=== PATIENT | male | born 1970 | race African-American/Black ===

== ENCOUNTER 2017-03-04 17:18 | Emergency (ER) | payer OTHER ==
[~2017-03-04] VITALS: Ht 190.5 cm; Wt 135.6 kg
[2017-03-04] MEDS ORDERED: MORPHINE SULFATE 4 MG/ML DISP.SYRIN. IV/SQ PRN (18:45)
[2017-03-04 18:56] LABS: BASO # 0.1 x10^3/uL (0.0-0.2); BASO % 1 % (0-3); EOS % 2 % (0-3); HEMATOCRIT 43.4 % (39.0-53.0); HEMOGLOBIN 14.7 g/dL (13.0-17.5); LYMPH # 2.7 x10^3/uL (1.0-4.8); LYMPH % 26 % (24-48); MEAN CORPUSCULAR HEMOGLOBIN 29 pg (25-35); MEAN CORPUSCULAR HGB CONC 34 g/dL (31-37); MEAN CORPUSCULAR VOLUME 84 fL (79-100); MONO % 10 % (0-9); NEUT % 62 % (31-73); PLATELET COUNT 202 x10^3/uL (140-400); RED BLOOD COUNT 5.15 x10^6/uL (4.30-5.70); RED CELL DISTRIBUTION WIDTH 13.9 % (11.5-14.5); WHITE BLOOD COUNT 10.6 x10^3/uL (4.0-11.0)
[2017-03-04 19:07] LABS: CALCIUM 8.4 mg/dL (8.5-10.1); CREATININE 1.1 mg/dL (0.7-1.3); GFR 87.2; POTASSIUM 3.9 mmol/L (3.5-5.1)
[2017-03-04 19:17] LABS: BILIRUBIN,URINE NEGATIVE (NEG); GLUCOSE,URINE NEGATIVE (NEG); NITRITE,URINE NEGATIVE (NEG); PROTEIN,URINE NEGATIVE (NEG-TRACE); UROBILINOGEN,URINE 0.2 mg/dL (0.2 mg/dL)
[2017-03-04 19:21] LABS: BACTERIA,URINE 0 /HPF (0-FEW); RBC,URINE 0 /HPF (0-2); SQUAMOUS EPITHELIAL CELL,UR OCC /LPF
[2017-03-04 19:23] LABS: BARBITURATES NEG (NEG); BENZODIAZEPINES NEG (NEG); CANNABINOIDS POS (NEG); COCAINE NEG (NEG); METHADONE NEG (NEG); OPIATES NEG (NEG); PHENCYCLIDINE NEG (NEG)
[2017-03-04] MEDS ORDERED: KETOROLAC TROMETHAMINE 30 MG/ML INJ. IV ONE (20:00)
[2017-03-04] MEDS ORDERED: IOHEXOL 300 MG/ML 75 ML VIAL IV ONE (20:00)
[2017-03-04] MEDS ORDERED: IV NORMAL SALINE 1000ML BAG 1,000 ML IV ONE (20:00)
[2017-03-04] MEDS ORDERED: CONTRAST GIVEN MC PRN (20:15)
--- NOTE | 2017-03-04 20:37 | RAD ---
EXAM: CT pelvis with contrast. HISTORY: Perineal pain. Assess for abscess. TECHNIQUE: CT of the pelvis was performed after the intravenous administration of 75 mL Omnipaque 300. COMPARISON: None. FINDINGS: There is skin thickening and subcutaneous fat edema along the posterior aspect of the scrotum and perineal fat, extending into the left medial gluteal fat. This does not appear associated with the anus, and there is no extension into the ischiorectal fat or pelvis. A small immediately subcutaneous collection to the left of midline cannot be excluded. There appear to be small bilateral fat-containing inguinal hernias. There are no pathologically enlarged lymph nodes. There are mild atherosclerotic calcifications. IMPRESSION: 1. There may be a small immediately subcutaneous abscess to the left of midline just posterior to the scrotum. There is edema or cellulitis within the left gluteal fat. No extension into the pelvis. 2. Small bilateral fat-containing inguinal hernias. *One or more of the following individualized dose reduction techniques were utilized for this examination: 1. Automated exposure control. 2. Adjustment of the mA and/or kV according to patient size. 3. Use of iterative reconstruction technique. Electronically signed by: Elvira Elizalde MD (03/04/2017 8:33 PM) [facility]
[2017-03-04] MEDS ORDERED: AMOX1TAB61 PO (22:09)
[2017-03-04] MEDS ORDERED: HYDR-971 PO (22:09)
--- NOTE | 2017-03-04 22:09 | PHYS DOC ---
Past Medical History Past Medical History: No Pertinent History Past Surgical History: Appendectomy Alcohol Use: None Drug Use: None Adult General Chief Complaint Chief Complaint: MULTIPLE COMPLAINTS HPI HPI Patient is a 46 year old male who presents with complaints of diffuse weakness perhaps more on the left side but his chief complaint is pain around his rectal area and possible abscess. Review of Systems Review of Systems Constitutional: Denies fever or chills [] Eyes: Denies change in visual acuity, redness, or eye pain [] HENT: Denies nasal congestion or sore throat. Left ear pain Respiratory: Denies cough or shortness of breath [] Cardiovascular:no chest pain GI: Denies abdominal pain, nausea, vomiting, bloody stools or diarrhea . Pain below scrotum and rectal area. : Denies dysuria or hematuria [] Musculoskeletal: Denies back pain or joint pain [] Integument: Denies rash or skin lesions [] Neurologic: Denies headache, focal weakness or sensory changes [] Endocrine: Denies polyuria or polydipsia [] Current Medications Current Medications Current Medications Medications (Trade) Dose Ordered Sig/Jeri Start Time Stop Time Status Last Admin Dose Admin Clindamycin Phosphate 50 ml @ 100 mls/hr 1X ONCE 03/04/17 22:15 03/04/17 22:44 03/04/17 22:08 100 MLS/HR Info (Do NOT chart on this entry -- for MONITORING) 1 each PRN DAILY PRN 03/04/17 20:15 03/06/17 20:14 Iohexol (Omnipaque 300 Mg/ml) 75 ml 1X ONCE 03/04/17 20:00 03/04/17 20:01 DC 03/04/17 20:16 75 ML Ketorolac Tromethamine (Toradol) 30 mg 1X ONCE 03/04/17 20:00 03/04/17 20:01 DC 03/04/17 20:03 30 MG Morphine Sulfate 4 mg PRN Q15MIN PRN 03/04/17 18:45 03/05/17 18:44 Sodium Chloride 1,000 ml @ 1,000 mls/hr 1X ONCE 03/04/17 20:00 03/04/17 20:59 DC 03/04/17 20:03 1,000 MLS/HR Allergies Allergies Allergies Coded Allergies Type Severity Reaction Last Updated Verified Penicillins Allergy Unknown 03/04/17 Yes Physical Exam Physical Exam Constitutional: Well developed, well nourished, no acute distress, non-toxic appearance. [] HENT: Normocephalic, atraumatic, Eyes: EOMI, conjunctiva normal, no discharge. [] Neck: Normal range of motion, no tenderness, supple, no stridor. [] Cardiovascular:Heart rate regular rhythm, no murmur [] Lungs & Thorax: Bilateral breath sounds clear to auscultation [] Abdomen: Bowel sounds normal, soft, no tenderness, no masses, no pulsatile masses. [] Skin: Warm, dry, no erythema, no rash. [] Back: No tenderness, no CVA tenderness. [] Extremities: No tenderness, no cyanosis, no clubbing, ROM intact, no edema. [] Neurologic: Alert and oriented X 3, normal motor function, no focal deficits noted. No pronator drift. Pt ambulates without difficulty Psychologic: Affect normal, judgement normal, mood normal. [] Current Patient Data Vital Signs Vital Signs Date Time Temp Pulse Resp B/P (MAP) Pulse Ox O2 Delivery O2 Flow Rate FiO2 03/04/17 17:38 98.7 87 16 140/84 (102) 97 Room Air 98.7 Lab Values Laboratory Tests Test 03/04/17 18:45 03/04/17 19:10 White Blood Count 10.6 x10^3/uL (4.0-11.0) Red Blood Count 5.15 x10^6/uL (4.30-5.70) Hemoglobin 14.7 g/dL (13.0-17.5) Hematocrit 43.4 % (39.0-53.0) Mean Corpuscular Volume 84 fL (79-100) Mean Corpuscular Hemoglobin 29 pg (25-35) Mean Corpuscular Hemoglobin Concent 34 g/dL (31-37) Red Cell Distribution Width 13.9 % (11.5-14.5) Platelet Count 202 x10^3/uL (140-400) Neutrophils (%) (Auto) 62 % (31-73) Lymphocytes (%) (Auto) 26 % (24-48) Monocytes (%) (Auto) 10 % (0-9) H Eosinophils (%) (Auto) 2 % (0-3) Basophils (%) (Auto) 1 % (0-3) Neutrophils # (Auto) 6.5 x10^3uL (1.8-7.7) Lymphocytes # (Auto) 2.7 x10^3/uL (1.0-4.8) Monocytes # (Auto) 1.0 x10^3/uL (0.0-1.1) Eosinophils # (Auto) 0.2 x10^3/uL (0.0-0.7) Basophils # (Auto) 0.1 x10^3/uL (0.0-0.2) Sodium Level 139 mmol/L (136-145) Potassium Level 3.9 mmol/L (3.5-5.1) Chloride Level 104 mmol/L (98-107) Carbon Dioxide Level 27 mmol/L (21-32) Anion Gap 8 (6-14) Blood Urea Nitrogen 11 mg/dL (8-26) Creatinine 1.1 mg/dL (0.7-1.3) Estimated GFR (Cockcroft-Gault) 87.2 Glucose Level 111 mg/dL (70-99) H Calcium Level 8.4 mg/dL (8.5-10.1) L Urine Collection Type Unknown Urine Color Yellow Urine Clarity Clear Urine pH 6.0 Urine Specific Emerson 1.015 Urine Protein Negative mg/dL (NEG-TRACE) Urine Glucose (UA) Negative mg/dL (NEG) Urine Ketones (Stick) Negative mg/dL (NEG) Urine Blood Negative (NEG) Urine Nitrite Negative (NEG) Urine Bilirubin Negative (NEG) Urine Urobilinogen Dipstick 0.2 mg/dL (0.2 mg/dL) Urine Leukocyte Esterase Trace (NEG) Urine RBC 0 /HPF (0-2) Urine WBC 1-4 /HPF (0-4) Urine Squamous Epithelial Cells Occ /LPF Urine Bacteria 0 /HPF (0-FEW) Urine Mucus Slight /LPF Urine Opiates Screen Neg (NEG) Urine Methadone Screen Neg (NEG) Urine Barbiturates Neg (NEG) Urine Phencyclidine Screen Neg (NEG) Urine Amphetamine/Methamphetamine Neg (NEG) Urine Benzodiazepines Screen Neg (NEG) Urine Cocaine Screen Neg (NEG) Urine Cannabinoids Screen Pos (NEG) Urine Ethyl Alcohol Neg (NEG) Laboratory Tests 03/04/17 18:45 Laboratory Tests 03/04/17 18:45 EKG EKG 84 SR, no stemi, EP read at 2000 Radiology/Procedures Radiology/Procedures CT read of abscess noted and discussed with surgery Dr kenyon and the patient[] Course & Med Decision Making Course & Med Decision Making Pertinent Labs and Imaging studies reviewed. (See chart for details) I discussed this patient with down the surgeon business continuity strategy director Dr. Kenyon and both he and I agreed the patient should stay in the hospital to have a procedure done in the morning. When I went to the room to relate this to the patient the patient was adamant about not being able to stay due to work concerns. I'll O conversation with the patient regarding how dangerous to do this and the possibility that this infection may worsen. The patient understands the risk ( include risk and disability), he has medical decision capacity, and he still states that he cannot stay. The patient states that he will call surgery tomorrow morning after the event he has to take care of, and make an appointment. I called the surgeon back to let him know about the patient's decision, the surgeon understands and his recommendation if for the patient to stay, however since the patient opts to leave he recommends Augmentin for this patient and request the patient calls him in the morning to set up an appointment. pt states his reaction to penicillin was only a rash when young, did not need hospitalization. Dragon Disclaimer Dragon Disclaimer This electronic medical record was generated, in whole or in part, using a voice recognition dictation system. Departure Departure Impression: Primary Impression: Cellulitis Additional Impression: Perineal abscess Disposition: 01 HOME, SELF-CARE Referrals: NO PCP (PCP) JUAN M KENYON MD please call Dr Kenyon in the morning to set up an appointment to take care of your abscess Scripts Hydrocodone/Apap 5-325 (NORCO 5-325 TABLET) 1 Each Tablet 1 TAB PO TID, #20 TAB Prov: Maurice ARZOLA MD 03/04/17 Amoxicillin/Potassium Clav (AUGMENTIN 875-125 TABLET) 1 Each Tablet 1 TAB PO BID, #20 TAB Prov: Maurice ARZOLA MD 03/04/17 Problem Qualifiers Maurice ARZOLA MD Mar 04, 2017 22:09
[2017-03-04] MEDS ORDERED: CLINDAMYCIN 600MG PREMIX 50 ML IV ONE (22:15)
[2017-03-04 22:30] VITALS: BP 140/68
--- NOTE | 2017-03-05 07:47 | RAD ---
AP chest radiograph 03/04/2017 Indication: Dyspnea and weakness on the left side. Comparison: None. Findings: Cardiac and mediastinal silhouettes are within normal limits. No pleural effusion, pneumothorax or focal consolidation. Impression: No acute cardiopulmonary abnormality.
--- NOTE | 2017-03-05 08:17 | EKG ---
[facility] [address] [place] [address] Test Date: 2017-03-04 Test Time: 18:59:32 Pat Name: MAN HEDRICK Department: Room: Gender: M Insulation Blower: : 1970 Requested By: Maurice ARZOLA Order Number: [id number] Reading MD: Gary Silva Measurements Intervals [place] Rate: 84 P: 90 AL: 186 QRS: 40 QRSD: 84 T: 25 QT: 340 QTc: 405 Interpretive Statements SINUS RHYTHM CONSISTENT WITH ANTEROSEPTAL INFARCT PROBABLY OLD Electronically Signed On 03-05-2017 8:36:13 CDT by Gary Silva
[2017-03-10] MEDS ORDERED: AMOX1TAB61 PO (10:48)
== END 2017-03-04 22:41 | disposition home or self-care (01) ==
LOC: ER 17:18
DX: L02.215 Cutaneous abscess of perineum (principal); Z88.0 Allergy status to penicillin
CPT/HCPCS: 36415; 71010; 74170; 80048; 80307; 81001; 85027; 87086; 93005; 96361; 96365; 96375; 99285; J1885; J3490; J7030; Q9967; G0479

== ENCOUNTER 2017-03-09 09:22 | Inpatient (IN) | payer OTHER ==
[~2017-03-09] VITALS: Ht 190.5 cm; Wt 135.6 kg
[~2017-03-09 09:22] MED LIST: AMOX1TAB61 PO; HYDR-971 PO
--- NOTE | 2017-03-09 10:37 | PHYS DOC ---
Past Medical History Past Medical History: No Pertinent History Past Surgical History: Appendectomy Alcohol Use: Occasionally Drug Use: None Adult General Chief Complaint Chief Complaint: ABSCESS HPI HPI Patient is a 46 year old male presents to the emergency department with a history of perineal cellulitis in which he was seen on March 04 for and offered admission. Patient had refused at that time. Patient states he had taking Augmentin. He had also set up an appointment with Dr. Kenyon which she has March 16. Patient states the area started draining and he was having increased pain and discomfort. He had talked with the office staff and was told to come to the emergency department if it would start draining or he has any increased pain and discomfort. Patient denies fever, chills, nausea or vomiting. Review of Systems Review of Systems Constitutional: Denies fever or chills [] Eyes: Denies change in visual acuity, redness, or eye pain [] HENT: Denies nasal congestion or sore throat [] Respiratory: Denies cough or shortness of breath [] Cardiovascular: No additional information not addressed in HPI [] GI: Denies abdominal pain, nausea, vomiting, bloody stools or diarrhea [] : Denies dysuria or hematuria [] Musculoskeletal: Denies back pain or joint pain [] Integument: Denies rash or skin lesions. Perineal abscess/cellulitis Neurologic: Denies headache, focal weakness or sensory changes [] Endocrine: Denies polyuria or polydipsia [] Allergies Allergies Allergies Coded Allergies Type Severity Reaction Last Updated Verified Penicillins Allergy Unknown 03/04/17 Yes Physical Exam Physical Exam Constitutional: Well developed, well nourished, no acute distress, non-toxic appearance. [] HENT: Normocephalic, atraumatic, bilateral external ears normal, oropharynx moist, no oral exudates, nose normal. [] Eyes: PERRLA, EOMI, conjunctiva normal, no discharge. [] Neck: Normal range of motion, no tenderness, supple, no stridor. [] Cardiovascular:Heart rate regular rhythm, no murmur [] Lungs & Thorax: Bilateral breath sounds clear to auscultation [] Skin: Warm, dry, no erythema, no rash. Patient with redness, tenderness with no apparent drainage noted. Tenderness noted Back: No tenderness Extremities: No tenderness, no cyanosis, no clubbing, ROM intact, no edema. [] Neurologic: Alert and oriented X 3, normal motor function, normal sensory function, no focal deficits noted. [] Psychologic: Affect normal, judgement normal, mood normal. [] Current Patient Data Vital Signs Vital Signs Date Time Temp Pulse Resp B/P (MAP) Pulse Ox O2 Delivery O2 Flow Rate FiO2 03/09/17 09:25 97.6 83 16 96 Room Air 97.6 EKG EKG [] Radiology/Procedures Radiology/Procedures [] Course & Med Decision Making Course & Med Decision Making Pertinent Labs and Imaging studies reviewed. (See chart for details) Tentative contact Dr. Kenyon who is out of town for the week. Spoke with Dr. Bonner who agrees to be consulted for the patient. Spoke with the hospitalist in regards to patient being admitted will be placed on IV antibiotics with a consult to Dr. Bonner. Patient's was aware of the admission. [] Dragon Disclaimer Dragon Disclaimer This electronic medical record was generated, in whole or in part, using a voice recognition dictation system. Departure Departure Impression: Primary Impression: Cellulitis of perineum Disposition: ADMITTED INPATIENT Admitting Physician: Other (Dr Escobar) Condition: STABLE Referrals: NO PCP (PCP) ROSANA JIMENEZ ENTERPRISE ACCOUNT MANAGER Mar 09, 2017 10:37
[2017-03-09 10:50] LABS: BASO # 0.1 x10^3/uL (0.0-0.2); BASO % 1 % (0-3); EOS % 3 % (0-3); HEMATOCRIT 42.7 % (39.0-53.0); HEMOGLOBIN 14.7 g/dL (13.0-17.5); LYMPH # 2.7 x10^3/uL (1.0-4.8); LYMPH % 33 % (24-48); MEAN CORPUSCULAR HEMOGLOBIN 29 pg (25-35); MEAN CORPUSCULAR HGB CONC 35 g/dL (31-37); MEAN CORPUSCULAR VOLUME 84 fL (79-100); MONO % 12 % (0-9); NEUT % 51 % (31-73); PLATELET COUNT 237 x10^3/uL (140-400); RED BLOOD COUNT 5.11 x10^6/uL (4.30-5.70); RED CELL DISTRIBUTION WIDTH 14.1 % (11.5-14.5); WHITE BLOOD COUNT 8.1 x10^3/uL (4.0-11.0)
[2017-03-09 10:54] LABS: CALCIUM 8.6 mg/dL (8.5-10.1); CREATININE 1.2 mg/dL (0.7-1.3); GFR 78.9; POTASSIUM 4.2 mmol/L (3.5-5.1)
[2017-03-09 11:00] VITALS: BP 168/98
[2017-03-09 11:00] LABS: ALBUMIN 3.6 g/dL (3.4-5.0); ALBUMIN/GLOBULIN RATIO 0.9 (1.0-1.7); TOTAL BILIRUBIN 0.4 mg/dL (0.2-1.0); TOTAL PROTEIN 7.6 g/dL (6.4-8.2)
[2017-03-09] MEDS ORDERED: VANCOMYCIN 2 GM in IV NORMAL SALINE 500ML BAG 500 ML IV ONE (11:00)
[2017-03-09] MEDS ORDERED: VANCOMYCIN PER PHARMACY MC PRN (11:15)
[2017-03-09] MEDS: HYDROcodone/APAP 5/325MG 1 TAB TABLET PO PRN ×2 (11:32→17:43)
--- NOTE | 2017-03-09 13:05 | PDOC2 ---
CANDELARIO MAGUIRE MANAGER LATIN 03/09/17 1305: CONSULT Date of Consult Date of Consult DATE: 03/09/17 TIME: 12:56 Reason for Consult Reason for Consult: perineal abscess Referring Physician Referring Physician: ER Identification/Chief Complaint Chief Complaint rectal pain Problems: Source Source: Chart review, Patient History of Present Illness Reason for Visit: Patient with swelling to left groin/perineal area for 1 week. He was seen in ER Thursday evening and CT showed small abscess, however he declined admission due to work functions. He started oral antibiotics and had a appointment scheduled with Dr Kenyon, however yesterday it burst, had foul smelling drainage and fever. Continues to have pain to area Past Medical History Past Medical History no pertinent hx Past Surgical History Past Surgical History: Appendectomy (open) Family History Family History: Other (noncontributory to current illness ) Social History <1 pack per day ALCOHOL: occassional Drugs: None Lives: Alone Current Problem List Problem List Problems Medical Problems: (1) Cellulitis of perineum Status: Acute Current Medications Current Medications Current Medications Vancomycin HCl 250 ml @ 250 mls/hr DAILY IV ; Start 03/10/17 at 09:00; Stop 03/10 at 09:00; Status DC Acetaminophen/ Hydrocodone Bitart (Lortab 5/325) 2 tab PRN Q6HRS PRN PO pain Last administered on 03/09/17t 11:32; Start 03/09/17 at 10:45 Vancomycin HCl 2 gm/Sodium Chloride 500 ml @ 250 mls/hr 1X ONCE IV ; Start at 11:00; Stop 03/09/17 at 12:59 Vancomycin HCl (Vanco Per Pharmacy) 1 each PRN DAILY PRN MC SEE COMMENTS; Start 03/09/17 at 11:15 Active Scripts Active Kennard 5-325 Tablet (Acetaminophen/Hydrocodone Bitart) 1 Each Tablet 1 Tab PO TID Augmentin 875-125 Tablet (Amoxicillin/Potassium Clav) 1 Each Tablet 1 Tab PO BID Allergies Allergies: Coded Allergies: Penicillins (Verified Allergy, Unknown, 03/04/17) ROS General: YES: Other (fevers+), No: Chills PSYCHOLOGICAL ROS: No: Anxiety, Depression Eyes: No Blurry vision, No Double vision HEENT: YES: Other (+ drainage/odor from ear) Hematological and Lymphatic: No: Bleeding Problems, Blood Clots Respiratory: No: Cough, Shortness of breath Cardiovascular: No Chest Pain, No Palpitations Gastrointestinal: No Nausea, No Vomiting Genitourinary: No Dysuria, No Hematuria Musculoskeletal: No Joint Pain, No Muscle Pain Neurological: No Confusion, No Numbness/Tingling Skin: Yes Other (see hpi) Physical Exam General: Alert, Oriented X3, Cooperative, No acute distress HEENT: PERRLA, Mucous membr. moist/pink Lungs: Clear to auscultation, Normal air movement Heart: Regular rate, Normal S1, Normal S2, No murmurs Abdomen: Soft, No tenderness, Other (RLQ scar) Extremities: No clubbing, No cyanosis Skin: Other (left perineal area with small open wound, there is still some induration, minimal fluctunance, and moderate tenderness on exam-no scrotal swelling ) Neuro: Normal gait, Normal speech Psych/Mental Status: Mental status NL, Mood NL MUSCULOSKELETAL: No deformity, No swelling Vitals VITALS Vital Signs Date Time Temp Pulse Resp B/P (MAP) Pulse Ox O2 Delivery O2 Flow Rate FiO2 03/09/17 11:32 16 99 Room Air 03/09/17 09:25 97.6 83 97.6 Labs Labs Laboratory Tests Test 03/09/17 10:35 White Blood Count 8.1 x10^3/uL (4.0-11.0) Red Blood Count 5.11 x10^6/uL (4.30-5.70) Hemoglobin 14.7 g/dL (13.0-17.5) Hematocrit 42.7 % (39.0-53.0) Mean Corpuscular Volume 84 fL (79-100) Mean Corpuscular Hemoglobin 29 pg (25-35) Mean Corpuscular Hemoglobin Concent 35 g/dL (31-37) Red Cell Distribution Width 14.1 % (11.5-14.5) Platelet Count 237 x10^3/uL (140-400) Neutrophils (%) (Auto) 51 % (31-73) Lymphocytes (%) (Auto) 33 % (24-48) Monocytes (%) (Auto) 12 % (0-9) Eosinophils (%) (Auto) 3 % (0-3) Basophils (%) (Auto) 1 % (0-3) Neutrophils # (Auto) 4.2 x10^3uL (1.8-7.7) Lymphocytes # (Auto) 2.7 x10^3/uL (1.0-4.8) Monocytes # (Auto) 1.0 x10^3/uL (0.0-1.1) Eosinophils # (Auto) 0.2 x10^3/uL (0.0-0.7) Basophils # (Auto) 0.1 x10^3/uL (0.0-0.2) Sodium Level 139 mmol/L (136-145) Potassium Level 4.2 mmol/L (3.5-5.1) Chloride Level 104 mmol/L (98-107) Carbon Dioxide Level 27 mmol/L (21-32) Anion Gap 8 (6-14) Blood Urea Nitrogen 10 mg/dL (8-26) Creatinine 1.2 mg/dL (0.7-1.3) Estimated GFR (Cockcroft-Gault) 78.9 BUN/Creatinine Ratio 8 (6-20) Glucose Level 128 mg/dL (70-99) Calcium Level 8.6 mg/dL (8.5-10.1) Total Bilirubin 0.4 mg/dL (0.2-1.0) Aspartate Amino Transf (AST/SGOT) 42 U/L (15-37) Alanine Aminotransferase (ALT/SGPT) 78 U/L (16-63) Alkaline Phosphatase 68 U/L (46-116) Total Protein 7.6 g/dL (6.4-8.2) Albumin 3.6 g/dL (3.4-5.0) Albumin/Globulin Ratio 0.9 (1.0-1.7) Laboratory Tests Test 03/09/17 10:35 White Blood Count 8.1 x10^3/uL (4.0-11.0) Red Blood Count 5.11 x10^6/uL (4.30-5.70) Hemoglobin 14.7 g/dL (13.0-17.5) Hematocrit 42.7 % (39.0-53.0) Mean Corpuscular Volume 84 fL (79-100) Mean Corpuscular Hemoglobin 29 pg (25-35) Mean Corpuscular Hemoglobin Concent 35 g/dL (31-37) Red Cell Distribution Width 14.1 % (11.5-14.5) Platelet Count 237 x10^3/uL (140-400) Neutrophils (%) (Auto) 51 % (31-73) Lymphocytes (%) (Auto) 33 % (24-48) Monocytes (%) (Auto) 12 % (0-9) Eosinophils (%) (Auto) 3 % (0-3) Basophils (%) (Auto) 1 % (0-3) Neutrophils # (Auto) 4.2 x10^3uL (1.8-7.7) Lymphocytes # (Auto) 2.7 x10^3/uL (1.0-4.8) Monocytes # (Auto) 1.0 x10^3/uL (0.0-1.1) Eosinophils # (Auto) 0.2 x10^3/uL (0.0-0.7) Basophils # (Auto) 0.1 x10^3/uL (0.0-0.2) Sodium Level 139 mmol/L (136-145) Potassium Level 4.2 mmol/L (3.5-5.1) Chloride Level 104 mmol/L (98-107) Carbon Dioxide Level 27 mmol/L (21-32) Anion Gap 8 (6-14) Blood Urea Nitrogen 10 mg/dL (8-26) Creatinine 1.2 mg/dL (0.7-1.3) Estimated GFR (Cockcroft-Gault) 78.9 BUN/Creatinine Ratio 8 (6-20) Glucose Level 128 mg/dL (70-99) Calcium Level 8.6 mg/dL (8.5-10.1) Total Bilirubin 0.4 mg/dL (0.2-1.0) Aspartate Amino Transf (AST/SGOT) 42 U/L (15-37) Alanine Aminotransferase (ALT/SGPT) 78 U/L (16-63) Alkaline Phosphatase 68 U/L (46-116) Total Protein 7.6 g/dL (6.4-8.2) Albumin 3.6 g/dL (3.4-5.0) Albumin/Globulin Ratio 0.9 (1.0-1.7) Assessment/Plan Assessment/Plan cellulitis, abscess to left perineal with spontaneous drainage defer ear drainage/possible infection to IPC will check CT to see if further drainable fluid continue abx D/W MAYELA Soto MD 03/09/17 1824: CONSULT Allergies Allergies: Coded Allergies: Penicillins (Verified Allergy, Unknown, 03/04/17) Assessment/Plan Assessment/Plan Above reviewed, agree with plan; pt seen and examined independently by myself; 46 year old male with L perineal pain, swelling for last several days, drained spontaneously with improved symptoms; PMH/PSH/ROS/SH as above; alert, oriented NAD, lungs clear, heart RR and R, abdomen obese, nontender, left perineal region with small open ulcer, minimal drainage currently, appears soft , minimal induration; CT reviewed, shows improvement with resolving inflammatory changes. A/P) L perineal abscess, spontaneously drained with clinical and radiographic improvement; likely will not need further intervention, but will reinspect tomorrow CANDELARIO MAGUIRE APRN Mar 09, 2017 13:05 MAYELA GUADARRAMA MD Mar 09, 2017 18:24
[2017-03-09] MEDS ORDERED: IOHEXOL 300 MG/ML 75 ML VIAL IV ONE (13:45)
[2017-03-09 15:00] VITALS: BP 115/64
--- NOTE | 2017-03-09 15:39 | RAD ---
CT of the pelvis with contrast, 03/09/2017: History: Possible peroneal abscess Multidetector CT imaging was performed following an IV bolus injection of iodinated contrast material. No oral contrast material was administered for this exam. Comparison is made to a study from 03/04/2017. Streaky inflammatory changes along the posterior aspect of the perineum and scrotum extending into the inferior left gluteal region fat have diminished. There is only minimal residual inflammation in this region. No discrete fluid collection is seen to suggest abscess. The entire scrotum and perineum was not fully included on these scans. The bowel loops within the pelvis are unremarkable. The prostate gland is of normal size. There is minimal aortoiliac calcific plaquing. No abnormal pelvic fluid collection is seen. Small inguinal and iliac lymph nodes are unchanged. One left external iliac node is mildly enlarged, likely on a reactive basis. IMPRESSION: Resolving left posterior perineal inflammatory changes. No abscess is identified. PQRS Compliance Statement: One or more of the following individualized dose reduction techniques were utilized for this examination: 1. Automated exposure control 2. Adjustment of the mA and/or kV according to patient size 3. Use of iterative reconstruction technique
[2017-03-09] MEDS ORDERED: NICO1PAT21 TP (17:44)
[2017-03-09] MEDS: NEOMYCIN/POLYMYXIN/HC OTIC SUSPENSION 10ML BOTTLE. AS SCH ×2 (18:33→21:37)
[2017-03-09] MEDS: CEFEPIME HCL 1 GM in IV NORMAL SALINE 50ML 50 ML IV SCH (18:33)
[2017-03-09] MEDS: NICOTINE 21MG PATCH. TD SCH (18:36)
[2017-03-09 18:45] VITALS: BP 115/64
[2017-03-09 19:00] VITALS: BP 139/78
--- NOTE | 2017-03-09 20:49 | HP ---
ADMIT DATE: 03/09/2017 CHIEF COMPLAINT: Perineal abscess. HISTORY OF PRESENT ILLNESS: The patient is a 46-year-old -[place] gentleman without any medical issues, who presented to the Emergency Room with persistent perineal pain. He actually had been seen in the Emergency Room on 03/04/2017, but had declined admission at that time as he had a function at work that he felt could not be done without him. He had received Augmentin as antibiotic coverage, which did not alleviate the current issues. He was advised to return to the Emergency Room, should he feel a pop or drainage. He did experience both and therefore promptly returned to the Emergency Room today. He relates that the pain was actually increased. He, however, denies any fevers, chills, nausea, vomiting or diarrhea. PAST MEDICAL HISTORY: None. PAST SURGICAL HISTORY: None. FAMILY HISTORY: Positive for diabetes, hypertension and heart disease in both parents. SOCIAL HISTORY: Lives by himself. 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 Does not smoke. Drinks alcohol socially. No drugs. ALLERGIES: PENICILLINS. MEDICATIONS: None at home. REVIEW OF SYSTEMS: Positive as per HPI for perirectal abscess associated with pain and swelling. Rest of organ system review is negative. PHYSICAL EXAMINATION: VITAL SIGNS: From today show a blood pressure of 115/64, heart rate of 74, respiratory rate at 20. He is afebrile. GENERAL: This is a morbidly obese 46-year-old gentleman, alert and oriented, in no acute distress. HEENT: Shows no scleral icterus. NECK: Supple. LUNGS: Clear to auscultation bilaterally. HEART: Has regular rate and rhythm. ABDOMEN: Has positive bowel sounds, soft, nontender. PELVIS: Perineal area shows open abscess draining some, erythema and swelling in a very narrow area around the lesion. EXTREMITIES: Show no edema. SKIN: Warm, soft and dry without any rash. LABORATORY DATA: CBC with a WBC of 8.1, hemoglobin of 14.7, platelets of 237. Chemistries with a BUN and creatinine of 10 and 1.2. Electrolytes within normal limits. AST and ALT of 42 and 78. Albumin at 3.6. IMAGING DATA: Pelvis CT obtained in the Emergency Room shows resolving left posterior perineal inflammatory changes. No abscess is identified. ASSESSMENT AND PLAN: The patient is a 46-year-old -[place] gentleman with perineal abscess, which apparently has spontaneously drained. He has no fevers. Pain is his main issue. He is admitted to have surgery followup with him, although, at this point, he may not need any further intervention. He will be started on antibiotics, with having started on vancomycin in the Emergency Room, we will add gram-negative coverage as well given the location. Incidentally, the patient complains of left-sided ear pain ever since with foul-smelling odor from his ear. Will add otic antibiotics and A/B Otic. For pain control, he currently has hydrocodone. Can adjust medications as needed in dosage or frequency. Await surgical input for further interventions. FRANCK MCKEON MD DR: UR/nts JOB#: [id number] / [id number] BARBARA
[2017-03-09] MEDS: VANCOMYCIN 2 GM in IV NORMAL SALINE 500ML BAG 500 ML IV SCH (21:39)
[2017-03-09 23:00] VITALS: BP 125/69
[2017-03-10] MEDS: CEFEPIME HCL 1 GM in IV NORMAL SALINE 50ML 50 ML IV SCH ×2 (00:10→05:53)
[2017-03-10 03:00] VITALS: BP 141/82
--- NOTE | 2017-03-10 03:22 | ACF ---
Admission Forms Criteria CELLULITIS Clinical Indications for Admission to Inpatient Care (Place 'X' for any and all applicable criteria): Admission is indicated for ANY ONE of the following(1)(2)(3)(4)(5): [ ]I. Limb-threatening infection [ ]II. High-risk comorbid condition as indicated by ANY ONE of the following: [ ]a) Uncontrolled diabetes (eg, HbA1c greater than 10% (0.1)) [ ]b) Cirrhosis [ ]c) Neutropenia [ ]d) Asplenia [ ]e) Immunosuppression [ ]f) Symptomatic heart failure [ ]III. Failure of outpatient therapy as indicated by ALL of the following: [ ]a) Progression or no improvement after adequate trial (minimum of 48 hours, with longer period for stable lower extremity infection) [ ]b) Adequate antibiotic regimen as indicated by use of ANY ONE of the following: [ ]i) First-generation cephalosporin (e.g., cephalexin) [ ]ii) Antistaphylococcal penicillin (e.g., dicloxacillin) [ ]iii) Penicillin-allergic patient regimen (clindamycin, extended-spectrum fluoroquinolone, or doxycycline) [ ]iv) Resistant organism (eg, methicillin-resistant Staphylococcus aureus) regimen (6) [ ]c) Outpatient intravenous therapy regimen is not appropriate due to ANY ONE of the following. (7)(8)(9)(10): [ ]i) It was tried and was not successful (eg, progression of infection). [ ]ii) It is not available or cannot be arranged in a clinically appropriate time frame (e.g., the next day). [ ]iii) Clinical presentation (eg, acuity of infection, rapidity of progression, confirmed or suspected bacteremia) is judged to require ALL of the following: [ ]1) Immediate initiation of intravenous therapy ( eg, cannot wait for next day) [ ]2) Intensity of patient monitoring and observation (eg, vital sign measurement, checks for infection progression) that cannot be provided at other than inpatient level of care [ ]IV. Mental status changes [ ]V. Bacteremia [ ]. Hemodynamic instability [ ]VII. Suspected necrotizing soft tissue infection (e.g., gas in tissue)(11)( 12) [ ]VIII. Orbital infection (13)(14) [ ]IX. Associated surgical procedure (e.g., abscess drainage, debridement) not amenable to outpatient, emergency department, or observation care [ ]X. Cutaneous gangrene [ ]XI. High fever (temperature greater than 39.5 degrees C (103.1 degrees F) (oral)) not responsive to outpatient, emergency department, or observation care therapy [X]XIII. Inpatient admission required rather than observation care (Also use Cellulitis: Observation Care as appropriate) because of ANY ONE of the following : [X]a) Periorbital or perineal infection that is severe or worsening [ ]b) Severe pain requiring acute inpatient management [ ]c) IV fluid to replace significant ongoing (e.g., for over 24 hours) losses (greater than 3L/m2 per day) [ ]d) Compartment syndrome monitoring (17) [ ]e) Strict or protective (eg, laminar flow) isolation [ ]f) Urgent debridement or skin grafting [ ]g) Bone or joint debridement [ ]h) Immediate inpatient surgery [ ]i) Other condition, treatment or monitoring requiring inpatient admission Extended stay beyond goal length of stay may be needed for (1)(18): [ ]a) Necrotizing soft tissue infection or fasciitis [ ]b) Gram-negative infection [ ]c) Methicillin-resistant Staphylococcal aureus (MRSA) infection [ ]d) Peripheral venous insufficiency with cellulitis [ ]e) Extensive edema [ ]f) Sepsis or continued Hemodynamic instability [ ]g) Continued high fever or mental status change [ ]h) Bacteremia [ ]i) Active serious comorbid conditions ( eg, heart failure, renal insufficiency) The original [employer] content created by [employer] has been revised. The portions of the content which have been revised are identified through the use of italic text or in bold, and [facility] has neither reviewed nor approved the modified material. All other unmodified content is copyright [facility] [employer] [facility] [employer] Please see references footnoted in the original [facility] [employer] edition 2016 Admission Criteria Met?: Yes ALESIA QUINONES Mar 10, 2017 03:22 FRANCK MCKEON MD Mar 11, 2017 08:34
[2017-03-10 06:15] LABS: BASO # 0.1 x10^3/uL (0.0-0.2); BASO % 1 % (0-3); EOS % 4 % (0-3); HEMATOCRIT 43.7 % (39.0-53.0); HEMOGLOBIN 14.2 g/dL (13.0-17.5); LYMPH # 2.8 x10^3/uL (1.0-4.8); LYMPH % 44 % (24-48); MEAN CORPUSCULAR HEMOGLOBIN 28 pg (25-35); MEAN CORPUSCULAR HGB CONC 33 g/dL (31-37); MEAN CORPUSCULAR VOLUME 87 fL (79-100); MONO % 12 % (0-9); NEUT % 39 % (31-73); PLATELET COUNT 206 x10^3/uL (140-400); RED BLOOD COUNT 5.04 x10^6/uL (4.30-5.70); RED CELL DISTRIBUTION WIDTH 14.3 % (11.5-14.5); WHITE BLOOD COUNT 6.2 x10^3/uL (4.0-11.0)
[2017-03-10 06:26] LABS: CALCIUM 8.1 mg/dL (8.5-10.1); CREATININE 1.2 mg/dL (0.7-1.3); GFR 78.9; POTASSIUM 4.1 mmol/L (3.5-5.1)
[2017-03-10] MEDS: VANCOMYCIN 2 GM in IV NORMAL SALINE 500ML BAG 500 ML IV SCH (06:31)
[2017-03-10 07:00] VITALS: BP 135/81
--- NOTE | 2017-03-10 08:52 | PDOC ---
PROGRESS NOTES Chief Complaint Chief Complaint Perineal abscess ASSESSMENT AND PLAN: 1. Perineal abscess: spontaneous drainage with improved sx. no surgical intervention planned. 2. L ear pain: otitis externa. Abx ear drops 3. Pain control: hydrocodone 4. Dispo: home today History of Present Illness History of Present Illness feels much improved. pain controlled Vitals Vitals Vital Signs Date Time Temp Pulse Resp B/P (MAP) Pulse Ox O2 Delivery O2 Flow Rate FiO2 03/10/17 07:00 97.7 70 20 135/81 (99) 98 Room Air 97.7 Physical Exam General: Alert, Oriented X3, Cooperative, No acute distress Heart: Regular rate, Normal S1, Normal S2, No murmurs Abdomen: Soft, No tenderness, Other (RLQ scar) Extremities: No clubbing, No cyanosis Skin: Other (left perineal area with small open wound, there is still some induration, minimal fluctunance, and moderate tenderness on exam-no scrotal swelling ) Labs LABS Laboratory Tests Test 03/09/17 10:35 03/10/17 05:30 White Blood Count 8.1 x10^3/uL (4.0-11.0) 6.2 x10^3/uL (4.0-11.0) Red Blood Count 5.11 x10^6/uL (4.30-5.70) 5.04 x10^6/uL (4.30-5.70) Hemoglobin 14.7 g/dL (13.0-17.5) 14.2 g/dL (13.0-17.5) Hematocrit 42.7 % (39.0-53.0) 43.7 % (39.0-53.0) Mean Corpuscular Volume 84 fL (79-100) 87 fL (79-100) Mean Corpuscular Hemoglobin 29 pg (25-35) 28 pg (25-35) Mean Corpuscular Hemoglobin Concent 35 g/dL (31-37) 33 g/dL (31-37) Red Cell Distribution Width 14.1 % (11.5-14.5) 14.3 % (11.5-14.5) Platelet Count 237 x10^3/uL (140-400) 206 x10^3/uL (140-400) Neutrophils (%) (Auto) 51 % (31-73) 39 % (31-73) Lymphocytes (%) (Auto) 33 % (24-48) 44 % (24-48) Monocytes (%) (Auto) 12 % (0-9) 12 % (0-9) Eosinophils (%) (Auto) 3 % (0-3) 4 % (0-3) Basophils (%) (Auto) 1 % (0-3) 1 % (0-3) Neutrophils # (Auto) 4.2 x10^3uL (1.8-7.7) 2.4 x10^3uL (1.8-7.7) Lymphocytes # (Auto) 2.7 x10^3/uL (1.0-4.8) 2.8 x10^3/uL (1.0-4.8) Monocytes # (Auto) 1.0 x10^3/uL (0.0-1.1) 0.7 x10^3/uL (0.0-1.1) Eosinophils # (Auto) 0.2 x10^3/uL (0.0-0.7) 0.3 x10^3/uL (0.0-0.7) Basophils # (Auto) 0.1 x10^3/uL (0.0-0.2) 0.1 x10^3/uL (0.0-0.2) Sodium Level 139 mmol/L (136-145) 139 mmol/L (136-145) Potassium Level 4.2 mmol/L (3.5-5.1) 4.1 mmol/L (3.5-5.1) Chloride Level 104 mmol/L (98-107) 105 mmol/L (98-107) Carbon Dioxide Level 27 mmol/L (21-32) 27 mmol/L (21-32) Anion Gap 8 (6-14) 7 (6-14) Blood Urea Nitrogen 10 mg/dL (8-26) 10 mg/dL (8-26) Creatinine 1.2 mg/dL (0.7-1.3) 1.2 mg/dL (0.7-1.3) Estimated GFR (Cockcroft-Gault) 78.9 78.9 BUN/Creatinine Ratio 8 (6-20) Glucose Level 128 mg/dL (70-99) 128 mg/dL (70-99) Calcium Level 8.6 mg/dL (8.5-10.1) 8.1 mg/dL (8.5-10.1) Total Bilirubin 0.4 mg/dL (0.2-1.0) Aspartate Amino Transf (AST/SGOT) 42 U/L (15-37) Alanine Aminotransferase (ALT/SGPT) 78 U/L (16-63) Alkaline Phosphatase 68 U/L (46-116) Total Protein 7.6 g/dL (6.4-8.2) Albumin 3.6 g/dL (3.4-5.0) Albumin/Globulin Ratio 0.9 (1.0-1.7) FRANCK MCKEON MD Mar 10, 2017 08:52
[2017-03-10] MEDS ORDERED: VANCOMYCIN 1GM IVPB FOR OMNI 250 ML IV SCH (09:00)
[2017-03-10] MEDS: NICOTINE 21MG PATCH. TD SCH (09:02)
[2017-03-10] MEDS: HYDROcodone/APAP 5/325MG 1 TAB TABLET PO PRN (09:03)
[2017-03-10] MEDS: NEOMYCIN/POLYMYXIN/HC OTIC SUSPENSION 10ML BOTTLE. AS SCH (09:04)
[2017-03-10] MEDS ORDERED: AMOX1TAB61 PO (10:48)
[2017-03-10 11:00] VITALS: BP 127/64
--- NOTE | 2017-03-10 21:43 | DS ---
DATE OF DISCHARGE: 03/10/2017 CHIEF COMPLAINT: Perineal abscess. HOSPITAL COURSE: The patient is a 46-year-old gentleman who had presented a few days prior to current admission with perineal pain and fullness and had been diagnosed with an abscess. He had declined admission at that time due to work engagements. He had been discharged at that time on antibiotics and advised to return to the Emergency Room if any acute changes occurred. He came back when he felt the abscess is bursting and fluid is gaping. He was therefore admitted to the hospital for further evaluation by Surgery. Because of spontaneous drainage of the abscess without any persistent findings on CT, surgical intervention was not indicated. He was continued on his antibiotics and discharged to home the following day. An incidental finding of left ear pain was treated as otitis externa and treated with antibiotic eardrops. PHYSICAL EXAMINATION: Please refer to note from same date. DISCHARGE DIAGNOSES: Perineal abscess, otitis externa. DISCHARGE DISPOSITION: To home. DISCHARGE CONDITION: Improved. DISCHARGE MEDICATIONS: Please refer to MAR. DISCHARGE INSTRUCTIONS: The patient will follow up with his primary care physician in 1-2 weeks. FRANCK MCKEON MD DR: AJIME/nts JOB#: [id number] / [id number] BARBARA
== END 2017-03-10 12:55 | disposition home or self-care (01) | DRG 603 ==
LOC: ER 09:22 → 4 NORTH 10:40
PROVIDERS: ADMIT Internal Medicine Hematology & Oncology; ATTEND Internal Medicine Hematology & Oncology
DX: L03.315 Cellulitis of perineum (principal); H60.92 Unspecified otitis externa, left ear; L02.215 Cutaneous abscess of perineum; E66.01 Morbid (severe) obesity due to excess calories; Z82.49 Family history of ischemic heart disease and other diseases of the circulatory system; Z83.3 Family history of diabetes mellitus; Z90.49 Acquired absence of other specified parts of digestive tract; Z72.89 Other problems related to lifestyle; Z88.0 Allergy status to penicillin; Z68.37 Body mass index [BMI] 37.0-37.9, adult
CPT/HCPCS: 36415; 74170; 80048; 80053; 85027; 99285; J0692; J3370; J7040; Q9967